=== PATIENT | female | born 1985 ===

== ENCOUNTER 2016-12-20 11:27 | Inpatient (IN) ==
[2016-12-20] MEDS ORDERED: LACTATED RINGERS 1,000 ML IV ONE (11:35)
--- NOTE | 2016-12-20 14:43 | Ultrasound Report ---
History: Variable decelerations Date: 12/20/2016 Study: Ultrasound biophysical profile Comparison exam: No previous Real-time ultrasound images are captured and archived. There is a single intrauterine fetus in vertex presentation with a heart rate of 133 bpm. The placenta is anterior and fundal without previa. The KEILY measures lower normal at 6.0 cm. The maternal cervix is closed and measures 4.5 cm in length. breathing movement, gross body movement, tone, and qualitative amniotic fluid volume score as normal. Impression: Low risk for chronic asphyxia. The biophysical profile scores a normal 8/8. PROCEDURE INTERPRETED AT [facility] DEPARTMENT OF RADIOLOGY Final Report Signed by: Dr. Tsering Rios
[2016-12-20] MEDS ORDERED: ONDANSETRON 4 MG/2 ML VIAL IV PRN (23:19)
[2016-12-20] MEDS: MEPERIDINE 25 MG/1 ML VIAL IV PRN (23:29)
[2016-12-20] MEDS: LACTATED RINGERS 1,000 ML IV SCH (23:39)
[2016-12-21] MEDS: MEPERIDINE 25 MG/1 ML VIAL IV PRN (03:59)
[2016-12-21] MEDS ORDERED: ACETAMINOPHEN 325 MG TABLET PO PRN (04:22)
[2016-12-21] MEDS: LACTATED RINGERS 1,000 ML IV SCH (05:56)
[2016-12-21 06:45] LABS: Basophils % 0.3 % (0.0-0.8); Eosinophils # 0.1 10*3/uL (0.0-0.87); Eosinophils % 0.5 % (0.00-10.9); Hematocrit 35.5 VOL% (35.7-47.0); Hemoglobin 11.9 GM/DL (12.0-16.0); Immature Granulocytes % 0.6 %; Immature Granulocytes Absolute 0.07 #; Lymphocytes # 2.3 10*3/uL (1.4-4.0); Lymphocytes % 19.8 % (21.3-54.2); Mean Corpuscular HGB Conc 33.5 GM/DL (32-36); Mean Corpuscular Hemoglobin 32 PG (27-34); Mean Corpuscular Volume 96.5 FL (87-102); Mean Platelet Volume 9.4 FL (9.6-12.0); Monocytes % 8.5 % (1.7-12.7); Neutrophils # 8.1 10*3/uL (1.4-7.4); Neutrophils % 70.3 % (38.7-73.9); Platelet Count 204 T/CUMM (130-400); Red Blood Count 3.68 MC/CUMM (3.8-5.5); Red Cell Distribution Width 13.2 % (9.3-17.3); White Blood Count 11.6 T/CUMM (4-12)
[2016-12-21] MEDS ORDERED: miSOPROStol 200 MCG TABLET ONE (07:18)
[2016-12-21] MEDS ORDERED: LIDOCAINE 1% 50 ML VIAL ONE (07:18)
[2016-12-21] MEDS ORDERED: BUTORPHANOL 2 MG/ML VIAL IV PRN (07:19)
[2016-12-21 07:21] LABS: Albumin 2.4 G/DL (3.4-5.0); Bilirubin,Total 0.6 MG/DL (0.2-1.0); Calcium 8.3 MG/DL (8.5-10.1); Osmolality,Calculated 271.7 MOS/KG (273-304); Potassium 3.9 MMOL/L (3.5-5.1); Total Protein 5.8 G/DL (6.4-8.3)
[2016-12-21] MEDS ORDERED: OXYTOCIN/LR 20 UNIT/1,000 ML BAG IV SCH (07:30)
--- NOTE | 2016-12-21 08:00 | OB/GYN History & Physical ---
History of Present Illness Chief complaint: contractions History of present illness: Ms. David is a 31 year old female at 39 0/7 weeks who was admitted for observation last night for r/o labor. ~0430 this morning I was called to say that the patient had changed from FT to 3 cm dilated and was thought to be in early labor. At 0720, called to say that she was 7/90/-2 with BBOW. Pt reports that the has been uneventful. Medical history significant for obesity. No surgical history. x 3 without complication. Oldest 16, youngest 8. Home Medications Medication Instructions Recorded Confirmed Type No Known Home Medications [No 12/20/16 12/20/16 History Known Home Medications] Allergies Allergy/AdvReac Type Severity Reaction Status Date / Time No Known Allergies Allergy Verified 12/20/16 12:08 Medical,Surgical,& Family Hx - Medical History Reproductive: No history of: Ectopic , Complication - Surgical History Abdominal Surgeries: Surgical HX of: Cholecystectomy Reproductive Surgeries: Patient denies;: Section - Family History Family History: Reports;: Family Cancer (aunt), Family Diabetes (mom), Family Stroke (mom) Denies;: Family Anesthesia Reaction, Family Heart Disease, Family Hematology , Family Hypertension, Family Psychiatric Problems, Additional Family History - Social History Smoking Status: Never smoker Frequency of Alcohol Use: None Type of Drug Use: None Exam SECURITY SCREENER - Constitutional Vitals: Vital Signs Temp Pulse Resp BP Pulse Ox 12/21/16 04:00 97.4 F L 64 20 117/68 98 12/21/16 00:00 97.9 F 68 18 115/72 12/20/16 22:32 81 18 105/55 12/20/16 19:07 97.2 F L 79 20 124/70 12/20/16 12:00 97.9 F 88 18 112/70 97 General appearance: no acute distress, over weight - Head Head exam: Present: normal inspection, normocephalic - Eye Eye exam: Present: EOMI Pupils: Present: RORY, normal accommodation - Respiratory Respiratory exam: Present: clear to auscultation bilaterally - Cardiovascular Cardiovascular exam: Present: regular rate and rhythm - GI/Abdominal GI/Abdominal exam: Present: soft, other (FHTs reassuring. regular contractions) Assessment and Plan (1) 39 weeks gestation of Status: Acute Assessment and plan: Active labor at term Start pitocin, Anticipate Current Visit: Yes Results - Labs CBC & BMP: 12/21/16 06:35 12/21/16 06:35
[2016-12-21] MEDS ORDERED: PROMETHAZINE 25 MG/1 ML VIAL IM ONE (09:20)
[2016-12-21] MEDS ORDERED: diphenhydrAMINE 50 MG/1 ML VIAL IV PRN (09:20)
[2016-12-21] MEDS ORDERED: fentaNYL 2 MCG/ROPIV 0.2% EPID 150 ML EPIDURAL SCH (09:20)
[2016-12-21] MEDS ORDERED: CITRIC ACID/SODIUM CITRATE 30 ML UDCUP PO ONE (09:21)
[2016-12-21] MEDS ORDERED: FAMOTIDINE 20 MG/2 ML VIAL IV ONE (09:21)
[2016-12-21] MEDS ORDERED: DIPH/TET/ACEL PERT BOOSTER VACCINE 0.5 ML VIAL IM ONE (11:48)
[2016-12-21] MEDS ORDERED: OXYTOCIN/LR 20 UNIT/1,000 ML BAG IV ONE (11:48)
[2016-12-21] MEDS ORDERED: BISACODYL 10 MG SUPP RECTAL PRN (11:48)
[2016-12-21] MEDS ORDERED: LANOLIN 50% CREAM 0.3 OZ TUBE TOP PRN (11:48)
[2016-12-21] MEDS ORDERED: WITCH HAZEL PADS 100/JAR TOP PRN (11:48)
[2016-12-21] MEDS ORDERED: ONDANSETRON 4 MG/2 ML VIAL IV PRN (11:48)
[2016-12-21] MEDS ORDERED: RHO(D) IMMUNE GLOBULIN 300 MCG SYRINGE IM ONE (11:48)
[2016-12-21] MEDS ORDERED: MEASLES/MUMPS/RUBELLA VACCINE 0.5 ML VIAL SUBCUT ONE (11:48)
[2016-12-21] MEDS ORDERED: HYDROCORTISONE 2.5% RECTAL CREAM 30 GM TUBE TOP PRN (11:48)
[2016-12-21] MEDS ORDERED: BENZOCAINE 20%/MENTHOL 0.5% SPRAY 56 GM CAN TOP PRN (11:48)
--- NOTE | 2016-12-21 11:54 | Event Note ---
DELIVERY NOTE of male infant in WILLIAM presentation over intact perineum. Pt was hospitalized overnight for observation for labor. Pt began early labor ~ 0400. By 0730 7 cm. Pt started on pitocin ~0800. Opted for epidural around 0930 when still not delivered. ONce she sat up for epidural, SROM with meconium. Complete ~1100. Pt up to push ~1130. Pushed over ~ 3 contractions. suctioned with DeLee on the perineum. NICU team present for delivery. Once delivered, handed off to the team. Spontaneous delivery of intact placenta which was noted to have a vilamentous cord insertion. EBL 300 cc. 6 llbs 6 oz. APGARS 9/9 Mom and baby well.
[2016-12-21 12:05] LABS: Cord Arterial Blood HCO3 22.8 MMOL/L
[2016-12-21 12:07] LABS: Cord Venous Blood HCO3 18.4 MMOL/L; Cord Venous Blood PCO2 48.4 MMHG; Cord Venous Blood PO2 24.1
--- NOTE | 2016-12-21 13:25 | Anesthesia Post-Op ---
Anesthesia Post OP - Post Ansesthetic Evaluation Patient seen in post op: Yes Resp: within normal limits CV: within normal limits Mental: within normal limits Temp: within normal limits Xdce-Dv-[id number]: within normal limits Nausea and Vomiting: within normal limits Pain: within normal limits
[2016-12-21] MEDS: DOCUSATE SODIUM 100 MG CAPSULE PO SCH (21:00)
[2016-12-22] MEDS: IBUPROFEN 800 MG TABLET PO PRN ×3 (04:20→18:56)
[2016-12-22 06:18] LABS: Basophils % 0.3 % (0.0-0.8); Eosinophils # 0.1 10*3/uL (0.0-0.87); Eosinophils % 0.6 % (0.00-10.9); Hematocrit 30.7 VOL% (35.7-47.0); Hemoglobin 10.3 GM/DL (12.0-16.0); Immature Granulocytes % 0.9 %; Immature Granulocytes Absolute 0.11 #; Lymphocytes # 3.4 10*3/uL (1.4-4.0); Lymphocytes % 28.9 % (21.3-54.2); Mean Corpuscular HGB Conc 33.6 GM/DL (32-36); Mean Corpuscular Hemoglobin 32 PG (27-34); Mean Corpuscular Volume 95.9 FL (87-102); Mean Platelet Volume 9.6 FL (9.6-12.0); Monocytes # 1.2 10*3/uL (0.11-0.8); Monocytes % 10.1 % (1.7-12.7); Neutrophils % 59.2 % (38.7-73.9); Platelet Count 179 T/CUMM (130-400); Red Cell Distribution Width 13.2 % (9.3-17.3); White Blood Count 11.8 T/CUMM (4-12)
[2016-12-22] MEDS: DOCUSATE SODIUM 100 MG CAPSULE PO SCH ×2 (09:04→21:27)
[2016-12-22] MEDS ORDERED: MAGNESIUM HYDROXIDE SUSP 30 ML UDCUP PO PRN (09:18)
--- NOTE | 2016-12-22 10:36 | OB/GYN Progress Note ---
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 But overall, feels well Exam PERSONAL FITNESS MANAGER - Constitutional Vitals: Vital Signs Temp Pulse Resp BP Pulse Ox 12/22/16 08:00 97.9 F 79 18 120/74 12/22/16 06:00 18 12/22/16 04:20 98.6 F 71 20 112/62 99 12/22/16 02:00 18 12/21/16 23:00 97.9 F 79 18 110/62 99 12/21/16 19:30 98.6 F 83 20 137/86 99 12/21/16 17:15 98.2 F 55 L 18 113/58 100 12/21/16 16:15 97.6 F 80 18 132/70 95 12/21/16 15:15 97.6 F 87 18 135/91 96 12/21/16 14:45 105 H 20 131/72 96 12/21/16 14:15 98.2 F 87 20 121/65 95 General appearance: no acute distress, over weight - Head Head exam: Present: normocephalic - Eye Eye exam: Present: EOMI Pupils: Present: RORY - GI/Abdominal GI/Abdominal exam: Present: soft. Absent: tenderness Results - Labs CBC & BMP: 12/22/16 05:59 12/21/16 06:35
[2016-12-23] MEDS: IBUPROFEN 800 MG TABLET PO PRN (04:30)
[2016-12-23] MEDS: DOCUSATE SODIUM 100 MG CAPSULE PO SCH (08:30)
[2016-12-23 08:34] VITALS: BP 125/77
--- NOTE | 2016-12-23 09:35 | Discharge Summary ---
Hospital Course - Hospital Course Hospital Course: Routine pospartum course without complication Feels good this morning. Ready to go home Diagnosis - Discharge Diagnosis (1) 39 weeks gestation of Status: Acute (2) (normal spontaneous vaginal delivery) Status: Acute Discharge Plan - Discharge Data Disposition: Disch To Home/Self Care Condition at Discharge: Stable Discharge Diet: advance to your usual diet Activity: other (routine ) Hygiene: may shower Weight Bearing at Discharge: full weight bearing Driving: no restrictions Contact your physician if you experience:: fever over 101, Difficulty voiding, Redness or swelling - Discharge Medications New Ibuprofen Tab [Motrin Tab] 800 mg PO Q6H PRN #30 tablet PRN Reason: Pain Moderate (4-7) - Follow Up or Referral - Forms/Instructions Exam - Constitutional Vitals: Period Temp Pulse Resp BP Sys/[place] Pulse Ox Last 24 Hr 97.3 F-98.1 F 65-93 18-20 108-155/61-84 99-99 General appearance: no acute distress, over weight - Head Head exam: Present: normal inspection, normocephalic - Eye Eye exam: Present: EOMI Pupils: Present: RORY - GI/Abdominal GI/Abdominal exam: Present: soft. Absent: tenderness DS: Provider Date of admission: 12/21/16 04:22 Primary care physician: Refugio Bobby MD Attending physician on admission: May Buckley MD Consults: 12/21/16 11:49 Consult to Amusement Equipment Operator [CONS] Routine Consult Amusement Equipment Operator: Breast Feeding Discharging clinician: May Buckley MD
--- NOTE | 2016-12-24 12:24 | Pathology Report from [facility] ---
ACCESSION # : [id number] PATIENT NAME : Nick Perkins ORDERING DR : May Buckley MD CLINICAL HX: IUP @ 39 wks, nonreassuring FHR, meconium stain fluid, velementous cord insertion POST-OP DX: Same SPECIMEN INFO: Placenta GROSS DESCRIPTION: Received fresh labeled "NICK PERKINS" is a 467 gm placenta measuring 19.2 x 17.0 x 2.3 cm. The membranes are cr and translucent with meconium staining noted. The umbilical cord measures 16.0 cm, contains three vessels and is velementously inserted near the placenta margin. The surface is blue escalante and intact. The maternal surface displays intact red escalante cotyledons with a 7.5 x 2.5 cm flattened area of fibrin noted. Sections submitted A- membranes and cord, B- and maternal surfaces. DIAGNOSIS FOR NICK PERKINS: PLACENTA, MEMBRANES, UMBILICAL CORD: Focal placental infarction with dystrophic calcification, subchorionic fibrin, mild intervillous blood. Tri-vessel umbilical cord, marginally inserted. Membranes with focal chronic inflammation and attached blood. SERVICE DATE: 12/22/2016 REPORT DATE: 12/24/2016 PATHOLOGIST: Ramana Hopkins
== END 2016-12-23 11:00 | disposition home or self-care (01) | DRG 775 ==
LOC: N.LDOUT 11:27 → N.LD 11:31 → N.OB 12-21 14:15
PROVIDERS: ADMIT Obstetrics & Gynecology; ATTEND Obstetrics & Gynecology